=== PATIENT | female | born 1965 | race Caucasian/White ===

== ENCOUNTER → 2024-05-17 14:28 | Outpatient (REF) | payer OTHER, SELFPAY | LOC: HWRAD 14:28 | PROVIDERS: ATTENDING PHYSICIAN Otolaryngology; FAMILY PHYSICIAN Family Medicine | DX: K11.23 Chronic sialoadenitis (principal) | CPT/HCPCS: 76536 ==

== ENCOUNTER → 2024-07-06 08:03 | Outpatient (REF) | payer OTHER, SELFPAY | LOC: RAD 08:03 | PROVIDERS: ATTENDING PHYSICIAN Otolaryngology; FAMILY PHYSICIAN Family Medicine | DX: K11.22 Acute recurrent sialoadenitis (principal) | CPT/HCPCS: 70491; Q9967 ==

== ENCOUNTER → 2024-09-21 15:51 | Outpatient (REF) | payer BC, SELFPAY | LOC: HWWDC 15:51 | PROVIDERS: ATTENDING PHYSICIAN Obstetrics & Gynecology; PRIMARYCARE PHYSICIAN Family Medicine | DX: Z12.31 Encounter for screening mammogram for malignant neoplasm of breast (principal); Z80.3 Family history of malignant neoplasm of breast; R92.30 Dense breasts, unspecified | CPT/HCPCS: 77063; 77067 ==